=== PATIENT | female | born 2000 | race Two or more races ===

== ENCOUNTER 2023-01-04 12:25 | Emergency (ER) | payer OTHER ==
[2023-01-04 12:39] VITALS: BP 110/73; RESP 18; TEMP 98.2; BMI 14.1
[2023-01-04] MEDS ORDERED: KETOROLAC TROMETHAMINE 30 MG/1 ML VIAL IM ONE (14:37)
[2023-01-04] MEDS ORDERED: KETOROLAC TROMETHAMINE 30 MG/1 ML VIAL ONE (14:39)
[2023-01-04] MEDS ORDERED: diazePAM 5 MG TABLET PO ONE (15:20)
[2023-01-04] MEDS ORDERED: diazePAM 5 MG TABLET ONE (15:22)
[2023-01-04] MEDS ORDERED: ACETAMINOPHEN 500 MG TABLET (FP) ONE (15:23)
[2023-01-04] MEDS ORDERED: ACETAMINOPHEN 500 MG TABLET (FP) PO ONE (15:23)
[2023-01-04 15:28] VITALS: PULSE 88
== END 2023-01-04 15:30 | disposition home or self-care (01) ==
LOC: JERFT 12:25
PROC: 3E023GC Introduction of Other Therapeutic Substance into Muscle, Percutaneous Approach (ICD-10-PCS; principal; 2023-01-04)
DX: S20.211A Contusion of right front wall of thorax, initial encounter (principal); S70.01XA Contusion of right hip, initial encounter; W11.XXXA Fall on and from ladder, initial encounter
CPT/HCPCS: 71101-TC-LT-FY; 72100-TC-FY; 72170-TC-FY; 99284-25